=== PATIENT | male | born 1970 | race Caucasian/White ===

== ENCOUNTER → 2019-11-10 | Outpatient (CLI) | payer BC | LOC: COL.RAD 07:30 | DX: K40.90 Unilateral inguinal hernia, without obstruction or gangrene, not specified as recurrent (principal) ==

== ENCOUNTER 2020-05-16 11:32 | Day surgery (SDC) | payer BC ==
[~2020-05-16] VITALS: Ht 185.4 cm; Wt 117.3 kg
[2020-05-16 13:05] VITALS: BP 136/81; PULSE 69; TEMP 98.4
[2020-05-16] MEDS ORDERED: NORCO 325 MG-51 TAB PO (16:02)
--- NOTE | 2020-05-16 16:45 | NUR ---
Report received from Serenity, [employer], at bedside in PACU. Transfer pt via cart from PACU to [facility] via this RN.
[2020-05-16 16:50] VITALS: BP 140/77; PULSE 71; TEMP 96.7
--- NOTE | 2020-05-16 16:50 | NUR ---
Monitors on and alarms set. Pt denies nausea and only feels a little dullness regarding pain. Pt's right shoulder pain is resolved. Pt drinking ice water. Pt requests crackers and desire to be discharged soon.
[2020-05-16 17:00] VITALS: BP 129/69; PULSE 69
--- NOTE | 2020-05-16 17:10 | NUR ---
Pt taking food and drink well. No complications voiced by pt.
[2020-05-16 17:15] VITALS: BP 131/67; PULSE 67
[2020-05-16 17:30] VITALS: BP 142/54; PULSE 66
[2020-05-16 17:45] VITALS: BP 129/51; PULSE 69
--- NOTE | 2020-05-16 17:48 | NUR ---
Pt requests to use the restroom and ambulates there with this RN assist without complications.
--- NOTE | 2020-05-16 18:00 | NUR ---
Discharge instructions given to pt. All questions answered to pt's satisfaction. Handed to him are a thank you card, discharge instructions, diagnosis information, and information to call the office to set up his follow-up appt. The doctor's office was called to notify them that the pt needed a 2 week follow-up appt and to call the pt to schedule it.
--- NOTE | 2020-05-16 18:04 | NUR ---
Pt transferred out of hospital via wheelchair and this RN to private vehicle driven by .
== END 2020-05-16 18:04 | disposition home or self-care (01) ==
LOC: SDCO 11:32
DX: K40.90 Unilateral inguinal hernia, without obstruction or gangrene, not specified as recurrent (principal); E66.9 Obesity, unspecified; Z86.19 Personal history of other infectious and parasitic diseases
CPT/HCPCS: C1781; J0330; J0690; J1885; J2250; J2405; J2704; J3010; J7120